=== PATIENT | male | born 1955 | race Caucasian/White ===

== ENCOUNTER 2016-10-13 07:07 | Day surgery (SDC) | payer OTHER ==
[~2016-10-13 07:07] MED LIST: KETOROLAC TROMETHAMINE 0.45% 4 DROP/0.4 ML DROPERETTE OS PRN
[2016-10-13] MEDS ORDERED: LIDOCAINE 1% INJ-PF (10 MG/ML) 30 ML SDV ONE (07:24)
[2016-10-13] MEDS ORDERED: TOBRAMYCIN SULFATE/DEXAMETH OPH OINTMENT 3.5 GM ONE (07:24)
[2016-10-13] MEDS ORDERED: CHONDR SU A NA/HYALUR INTRAOC KIT (SURGICARE) ONE (07:24)
[2016-10-13] MEDS ORDERED: EPINEPHRINE INJ/PF 1 MG/1 ML AMPULE ONE (07:24)
[2016-10-13] MEDS: TROPICAMIDE 1% OPH SOLN 3 ML OS PRN ×3 (07:38→08:05)
[2016-10-13] MEDS: CYCLOPENTOLATE 0.2%/PHENYLEPHRINE 1% OPH SOLN 2 ML OS PRN ×3 (07:38→08:05)
[2016-10-13] MEDS: BESIFLOXACIN HCL 0.6% OPH SUSP 5 ML BOTTLE OS PRN ×3 (07:39→08:32)
[2016-10-13] MEDS: TETRACAINE HCL 0.5% OPH SOLN 0.6 ML DROPERETTE OS PRN ×3 (07:40→08:12)
[2016-10-13] MEDS ORDERED: MIDAZOLAM 2 MG/2 ML INJ ONE ×2 (07:59→08:17)
== END 2016-10-13 09:11 | disposition home or self-care (01) ==
LOC: SC 07:07
PROVIDERS: ATTEND Ophthalmology
PROC: 08RK3JZ Replacement of Left Lens with Synthetic Substitute, Percutaneous Approach (ICD-10-PCS; principal; 2016-10-13 08:15)
DX: H25.12 Age-related nuclear cataract, left eye (principal); E11.9 Type 2 diabetes mellitus without complications; I10 Essential (primary) hypertension; E78.00 Pure hypercholesterolemia, unspecified; K21.9 Gastro-esophageal reflux disease without esophagitis; Z79.899 Other long term (current) drug therapy; Z79.82 Long term (current) use of aspirin; Z79.84 Long term (current) use of oral hypoglycemic drugs; Z79.4 Long term (current) use of insulin; Z87.891 Personal history of nicotine dependence
CPT/HCPCS: 82962; 66984; V2630; J2250; J3490 ×3; J0171; 142

== ENCOUNTER 2016-10-27 07:20 | Day surgery (SDC) | payer OTHER ==
[~2016-10-27 07:20] MED LIST changes: +KETOROLAC TROMETHAMINE 0.45% 4 DROP/0.4 ML DROPERETTE OD PRN; -KETOROLAC TROMETHAMINE 0.45% 4 DROP/0.4 ML DROPERETTE OS PRN
[2016-10-27] MEDS ORDERED: EPINEPHRINE INJ/PF 1 MG/1 ML AMPULE ONE (07:45)
[2016-10-27] MEDS ORDERED: LIDOCAINE 1% INJ-PF (10 MG/ML) 30 ML SDV ONE (07:45)
[2016-10-27] MEDS ORDERED: CHONDR SU A NA/HYALUR INTRAOC KIT (SURGICARE) ONE (07:45)
[2016-10-27] MEDS: TROPICAMIDE 1% OPH SOLN 3 ML OD PRN ×3 (07:50→08:07)
[2016-10-27] MEDS: CYCLOPENTOLATE 0.2%/PHENYLEPHRINE 1% OPH SOLN 2 ML OD PRN ×3 (07:50→08:08)
[2016-10-27] MEDS: BESIFLOXACIN HCL 0.6% OPH SUSP 5 ML BOTTLE OD PRN ×4 (07:51→08:36)
[2016-10-27] MEDS: TETRACAINE HCL 0.5% OPH SOLN 0.6 ML DROPERETTE OD PRN ×3 (07:52→08:20)
[2016-10-27] MEDS ORDERED: MIDAZOLAM 2 MG/2 ML INJ ONE ×2 (08:03→08:16)
[2016-10-27] MEDS: TOBRAMYCIN SULFATE/DEXAMETH OPH OINTMENT 3.5 GM ONE ×2 (08:28→08:36)
== END 2016-10-27 09:16 | disposition home or self-care (01) ==
LOC: SC 07:20
PROVIDERS: ATTEND Ophthalmology
PROC: 08RJ3JZ Replacement of Right Lens with Synthetic Substitute, Percutaneous Approach (ICD-10-PCS; principal; 2016-10-27 08:15)
DX: H25.11 Age-related nuclear cataract, right eye (principal); E11.9 Type 2 diabetes mellitus without complications; Z79.84 Long term (current) use of oral hypoglycemic drugs; I10 Essential (primary) hypertension; Z79.899 Other long term (current) drug therapy; Z79.82 Long term (current) use of aspirin; Z79.4 Long term (current) use of insulin; K21.9 Gastro-esophageal reflux disease without esophagitis; Z87.891 Personal history of nicotine dependence
CPT/HCPCS: 66984; 82962; V2630; J2250; J3490 ×3; J0171; 142

== ENCOUNTER 2020-03-04 16:52 | Emergency (ER) | payer OTHER ==
[2020-03-04 17:26] VITALS: BP 135/74
[2020-03-04] MEDS ORDERED: AZITHROMYCIN INJ 500 MG VIAL IV ONE (18:11)
[2020-03-04] MEDS ORDERED: ACETAMINOPHEN 325 MG TABLET PO ONE (18:12)
[2020-03-04] MEDS: NORMAL SALINE 1000 ML 1,000 ML IV PRN ×2 (18:13→19:29)
[2020-03-04 18:16] LABS: ABSOLUTE BASOPHILS # (AUTO) 0.1 10^3/uL (0.0-0.2); ABSOLUTE MONOCYTES (AUTO) 0.7 10^3/uL (0.1-1.4); ABSOLUTE NEUT (AUTO) 7.7 10^3/uL (1.7-8.2); BASOPHILS % (AUTO) 0.7 % (0-2); HEMATOCRIT 37.1 % (37.9-51.0); HEMOGLOBIN 12.5 g/dL (13.5-17.0); LYMPHOCYTES % (AUTO) 10.9 % (13-45); MEAN CORPUSCULAR HEMOGLOBIN 28.6 pg (27.0-33.4); MEAN CORPUSCULAR HGB CONC 33.8 g/dL (32.0-36.0); MEAN CORPUSCULAR VOLUME 85 fl (80-97); PLATELET COUNT 139 10^3/uL (150-450); RED BLOOD COUNT 4.38 10^6/uL (4.35-5.55); RED CELL DISTRIBUTION WIDTH 15.8 % (11.5-14.0); SEGMENTED NEUTROPHILS % (AUTO) 81.4 % (42-78); TOTAL CELLS COUNTED % (AUTO) 100 %; WHITE BLOOD COUNT 9.5 10^3/uL (4.0-10.5)
--- NOTE | 2020-03-04 18:19 | ER Document Report ---
ED General - General Chief Complaint: High Blood Sugar Stated Complaint: ALTERED MENTAL STATUS Time Seen by Provider: 03/04/20 17:58 Primary Care Provider: VIELKA VELÁZQUEZ MD [Primary Care Provider] - Follow up as needed Mode of Arrival: Stretcher Information source: Relative - Cannot obtain history due to: Uncooperative, Altered mental status Notes: 64-year-old male with type 1 diabetes and hypertension among probably many other medical problems presents via ambulance today for hypoxia, tachycardia, hyperglycemia, and fever. His mentions that he recently went to see a new doctor and walked out of the office before being seen. He is refusing to use any medications. She states that he has become more stubborn and more unwilling to take his medicines like he supposed to. She was finally able to convince him to come on the ambulance today. He is belligerent which she says he is normally cantankerous but is more so than normal. TRAVEL OUTSIDE OF THE [place] IN LAST 30 DAYS: No - Related Data Allergies/Adverse Reactions: No Known Allergies Allergy (Verified 03/04/20 17:13) Past Medical History - Social History Smoking Status: Current Every Day Smoker Lives with: Spouse/Significant other Family History: Reviewed & Not Pertinent Patient has homicidal ideation: No - Past Medical History Cardiac Medical History: Reports: Hx Hypertension - MEDICATED Denies: Hx Heart Attack Pulmonary Medical History: Denies: Hx Asthma Neurological Medical History: Denies: Hx Cerebrovascular Accident, Hx Seizures GI Medical History: Denies: Hx Hepatitis, Hx Hiatal Hernia, Hx Ulcer Infectious Medical History: Denies: Hx Hepatitis Past Surgical History: Denies: Hx Open Heart Surgery, Hx Pacemaker Review of Systems - Review of Systems Notes: Cannot obtain review of systems based on patient's current mental state. -: Yes ROS unobtainable due to patient's medical condition Physical Exam - Vital signs Vitals: Temp Pulse Resp BP Pulse Ox 100.3 F 111 H 30 H 135/74 H 93 03/04/20 17:13 03/04/20 17:13 03/04/20 17:13 03/04/20 17:13 03/04/20 17:13 - Notes Notes: General: Ill-appearing. Cardiac: Moderate tachycardia Pulmonary: Labored breathing. Audible crackles bilaterally Abdominal: Non-distended. Non-rigid. Bowels sounds are present in all four quadrants. No guarding or rebound. HEENT: Head is atraumatic. Conjunctivae not reddened. No tearing. PERRL. EOMI. Orbits atraumatic. No periorbital swelling or erythema. Oropharynx is without erythema, swelling, or exudates. Neck: Supple. No adenopathy. No meningismus. Dermatologic: Warm with good turgor. No rash. Atraumatic. Chest: Atraumatic. No chest wall tenderness to palpation. Musculoskeletal: Moves all extremities well. No range of motion deficits. no muscular or joint tenderness. No paraspinal muscle tenderness. no midline spinal tenderness or step-off. Genitourinary: Examination deferred Neurologic: No gross neurologic deficits. Psychiatric: Normal mood. Course - Re-evaluation Re-evalutation: 03/04/20 18:19 Probable ketoacidosis. Patient definitely has what appears to be a bilateral pneumonia on chest x-ray. Sepsis work-up initiated. IV fluids started. Zithromax started. 03/04/20 21:48 Patient ketoacidosis and probable Covid pneumonia. I spoke to the patient's who was at home and said there is nothing more that she can do to convince him to do anything that he does not want to do. When I told him that I plan to admit him to the hospital, he told me directly that that was not going to happen. He is awake alert oriented. GCS 15 out of 15. He states he wants to go to the [facility]. I advised him that he is critically ill and could in fact if he does not seek medical care or accept admission here. I even had Dr. Ribera come over and try to convince him to stay. Patient states very commonly that he can't afford to stay in this hospital he wants to go to [facility]. Patient was advised over and over of the risks of leaving including . He finally called his and told her to come to pick him up to take him to the [facility]. - Vital Signs Vital signs: Temp Pulse Resp BP Pulse Ox 99.3 F 111 H 25 H 135/74 H 93 03/04/20 18:21 03/04/20 17:13 03/04/20 19:00 03/04/20 17:13 03/04/20 19:00 - Laboratory Result Diagrams: 03/04/20 17:05 03/04/20 17:05 Laboratory results interpreted by me: 03/04/20 03/04/20 03/04/20 17:05 17:05 17:22 Hgb 12.5 L Hct 37.1 L RDW 15.8 H Plt Count 139 L Lymph % (Auto) 10.9 L Seg Neutrophils % 81.4 H Carbonic Acid ABG pH ABG pCO2 ABG pO2 ABG HCO3 ABG Total CO2 ABG O2 Saturation Sodium 132.9 L Carbon Dioxide 10 L* Anion Gap 25 H BUN 22 H Glucose 648 H* Creatine Kinase 179 H Total Protein 5.8 L Albumin 3.4 L Urine Protein 100 H Urine Glucose (UA) >=500 H Urine Ketones 80 H Urine Blood MODERATE H 03/04/20 19:16 Hgb Hct RDW Plt Count Lymph % (Auto) Seg Neutrophils % Carbonic Acid 0.77 L ABG pH 7.29 L ABG pCO2 25.5 L ABG pO2 68.7 L ABG HCO3 12.0 L ABG Total CO2 12.8 L ABG O2 Saturation 92.3 L Sodium Carbon Dioxide Anion Gap BUN Glucose Creatine Kinase Total Protein Albumin Urine Protein Urine Glucose (UA) Urine Ketones Urine Blood Discharge - Discharge Clinical Impression: Diabetic ketoacidosis Qualifiers: Diabetes mellitus type: type 1 Diabetes mellitus complication detail: without coma Qualified Code(s): E10.10 - Type 1 diabetes mellitus with ketoacidosis without coma Bilateral pneumonia Qualifiers: Pneumonia type: due to unspecified organism Lung location: unspecified part of lung Qualified Code(s): J18.9 - Pneumonia, unspecified organism Condition: Critical Disposition: AGAINST MEDICAL ADVICE Referrals: VIELKA VELÁZQUEZ MD [Primary Care Provider] - Follow up as needed
[2020-03-04 18:20] LABS: ALBUMIN 3.4 g/dL (3.5-5.0); ALKALINE PHOSPHATASE 46 U/L (38-126); ASPARTATE AMINO TRANSFERASE 17 U/L (17-59); BILIRUBIN,DIRECT 0.4 mg/dL (0.0-0.4); BLOOD UREA NITROGEN 22 mg/dL (7-20); CHLORIDE 98 mmol/L (98-107); CREATINE KINASE 179 U/L (55-170); TOTAL PROTEIN 5.8 g/dL (6.3-8.2)
[2020-03-04 18:30] LABS: ANION GAP 25 (5-19); CARBON DIOXIDE 10 mmol/L (22-30)
[2020-03-04 18:31] LABS: GLUCOSE 648 mg/dL (75-110)
--- NOTE | 2020-03-04 18:34 | RADIOLOGY REPORT (SQ) ---
EXAM DESCRIPTION: CHEST SINGLE VIEW IMAGES COMPLETED DATE/TIME: 03/04/2020 5:17 pm REASON FOR STUDY: SOB COMPARISON: None. EXAM PARAMETERS: NUMBER OF VIEWS: One view. TECHNIQUE: Single frontal radiographic view of the chest acquired. RADIATION DOSE: NA LIMITATIONS: None. FINDINGS: LUNGS AND PLEURA: Ill-defined patchy opacities in the right mid to lower lung and left amy g base. No pleural effusion or pneumothorax. MEDIASTINUM AND HILAR STRUCTURES: No masses. Contour normal. HEART AND VASCULAR STRUCTURES: Heart normal in size. Normal vasculature. BONES: No acute findings. HARDWARE: None in the chest. OTHER: No other significant finding. IMPRESSION: Ill-defined patchy opacities in the mid to lower lungs. Commonly reported imaging featur es of COVID-19 pneumonia are present. Other processes such as influenza pneumonia and organizing pn eumonia, as can be seen with drug toxicity and connective tissue disease, can cause a similar imaging pattern. TECHNICAL DOCUMENTATION: JOB ID: [id number] 2010 Dr. Z- All Rights Reserved Reading location - IP/workstation name: [email or web address]
[2020-03-04 18:36] LABS: APPEARANCE,URINE CLEAR; BILIRUBIN,URINE NEGATIVE (NEGATIVE); COLOR,URINE STRAW; GLUCOSE, URINE >=500 mg/dL (NEGATIVE); KETONES,URINE 80 mg/dL (NEGATIVE); LEUKOCYTE ESTERASE,URINE NEGATIVE (NEGATIVE); NITRITE,URINE NEGATIVE (NEGATIVE); PROTEIN,URINE 100 mg/dL (NEGATIVE); URINE SPECIFIC GRAVITY 1.029; UROBILINOGEN,URINE NEGATIVE mg/dL (<2.0)
[2020-03-04] MEDS ORDERED: GLUCAGON,HUMAN RECOMB 1 MG INJ IM PRN (18:51)
[2020-03-04] MEDS ORDERED: DEXTROSE 40% GEL 15 GM TUBE PO PRN ×2 (18:51)
[2020-03-04] MEDS ORDERED: NORMAL SALINE 100 ML with INSULIN REGULAR, HUMAN 100 UNIT IV PRN ×2 (18:51)
[2020-03-04] MEDS ORDERED: DEXTROSE 50%-WATER 25 GM/50 ML DISP.SYRIN IV PRN ×2 (18:51)
[2020-03-04 19:30] LABS: ARTERIAL BLOOD BASE EXCESS -12.9 mmol/L; ARTERIAL BLOOD H2CO3 0.77 mmol/L (1.05-1.35); ARTERIAL BLOOD O2 SATURATION 92.3 % (94-98); ARTERIAL BLOOD PCO2 25.5 mmHg (35-45); ARTERIAL BLOOD PH 7.29 (7.35-7.45); ARTERIAL BLOOD PO2 68.7 mmHg (80-100); ARTERIAL BLOOD TOTAL CO2 12.8 mmol/L (23-27)
[2020-03-04 19:36] LABS: ARTERIAL BLOOD FIO2 2L
[2020-03-04 20:22] LABS: A TYPE INFLUENZA AG NEGATIVE (NEGATIVE); B INFLUENZA AG NEGATIVE (NEGATIVE)
--- NOTE | 2020-03-05 22:10 | EKG REPORT ---
SEVERITY:- BORDERLINE ECG - SINUS TACHYCARDIA PROBABLE LEFT ATRIAL ABNORMALITY : Confirmed by: Ab Riley 05-Mar-2020 22:08:50
== END 2020-03-04 22:26 | disposition left against medical advice (07) ==
LOC: ER 16:52
DX: E10.10 Type 1 diabetes mellitus with ketoacidosis without coma (principal); J18.9 Pneumonia, unspecified organism; R41.82 Altered mental status, unspecified; I10 Essential (primary) hypertension; F17.200 Nicotine dependence, unspecified, uncomplicated; Z20.828 Contact with and (suspected) exposure to other viral communicable diseases
CPT/HCPCS: 93005; 99285; 96361; 96365; 36415; 87040; 82553; 82962; 82803; 82550; 83605; 85025; 87635; 80053; 81001; 84484; 87804; 71045; 93010; J7030; J0456; C9803